=== PATIENT | female | born 1995 | race Caucasian/White ===

== ENCOUNTER 2022-05-07 07:05 | Emergency (ER) | payer BC ==
[~2022-05-07] VITALS: Ht 157.5 cm; Wt 108.9 kg
[2022-05-07 07:17] VITALS: BP 127/66
--- NOTE | 2022-05-07 07:17 | NUR ---
TO BED AMBULATORY
--- NOTE | 2022-05-07 07:40 | NUR ---
26F presents to ED with c/o vaginal bleeding, ABD pain and nausea since this morning, cramping x1week. Pt reports she is 6 weeks , noted blood when in the restroom, a bright red initially to dark brown in color. Pt reports intermittent cramping like, 3/10 pain to lower ABD, and feeling fatigued. Pt denies dizziness or use of meds. Pt changed into gown, bed set at lowest position, side rails x1.
[2022-05-07 08:18] LABS: APPEARANCE,URINE CLEAR (CLEAR); BILIRUBIN,URINE NEGATIVE (NEGATIVE); BLOOD, URINE NEGATIVE (NEGATIVE); COLOR,URINE YELLOW (YELLOW); LEUKOCYTE ESTERASE ,URINE NEGATIVE (NEGATIVE); NITRITE, URINE NEGATIVE (NEGATIVE); PH,URINE 8.5 (5.0-9.0); UGLUCOSE NEGATIVE (NEGATIVE)
[2022-05-07 08:31] LABS: BASOPHILS # (AUTO) 0.1 K/uL (0.00-0.22); BASOPHILS % (AUTO) 0.9 % (0.0-2.0); EOSINOPHILS % (AUTO) 0.6 % (0.0-4.0); HEMATOCRIT 38.2 % (36-48); HEMOGLOBIN 12.7 g/dL (12.0-16.0); LYMPHOCYTES # (AUTO) 1.4 K/uL (2.5-16.5); LYMPHOCYTES % (AUTO) 19.6 % (20.5-51.1); MEAN CORPUSCULAR HEMOGLOBIN 30 pg (27-31); MEAN CORPUSCULAR HGB CONC 33 g/dL (33-37); MEAN CORPUSCULAR VOLUME 89.8 fL (80-94); MONOCYTES # (AUTO) 0.6 K/uL (0.8-1.0); MONOCYTES % (AUTO) 8.3 % (1.7-9.3); NEUTROPHILS # (AUTO) 4.9 K/uL (1.8-7.7); NEUTROPHILS % (AUTO) 70.6 % (42.2-75.2); PLATELET COUNT (AUTO) 257 K/uL (140-450); RED BLOOD CELL COUNT(AUTO) 4.25 MIL/uL (4.20-5.40); RED CELL DISTRIBUTION WIDTH 12.6 % (11.6-13.7)
--- NOTE | 2022-05-07 09:30 | NUR ---
Dr. Soto at bedside updating pt.
[2022-05-07 09:40] VITALS: BP 111/69
--- NOTE | 2022-05-07 09:40 | NUR ---
Patient discharged with v/s stable. Written and verbal after care instructions about threatened miscarriage given and explained. Patient verbalized understanding. Ambulatory with steady gait. All questions addressed prior to discharge. Advised to follow up with PMD.
== END 2022-05-07 09:40 | disposition home or self-care (01) ==
LOC: MED 07:05
DX: O20.0 Threatened abortion (principal); Z3A.01 Less than 8 weeks gestation of pregnancy
CPT/HCPCS: 36415; 76817; 81003; 84702; 85025; 86900; 86901; 99284; Q0092